=== PATIENT | male | born 1935 | race Caucasian/White ===

== ENCOUNTER 2019-01-28 11:58 | Inpatient (IN) | payer MEDICARE, OTHER ==
--- NOTE | 2019-01-28 12:38 | RADIOLOGY REPORT (SQ) ---
EXAM DESCRIPTION: CHEST SINGLE VIEW COMPLETED DATE/TIME: 01/28/2019 12:25 pm REASON FOR STUDY: sob COMPARISON: None. EXAM PARAMETERS: NUMBER OF VIEWS: One view. TECHNIQUE: Single frontal radiographic view of the chest acquired. RADIATION DOSE: NA LIMITATIONS: None. FINDINGS: LUNGS AND PLEURA: Chronic interstitial changes are present. There is slightly greater opa cification in the right upper lobe and left lower lobe. MEDIASTINUM AND HILAR STRUCTURES: No masses. Contour normal. HEART AND VASCULAR STRUCTURES: Heart normal in size. Normal vasculature. BONES: No acute findings. HARDWARE: Pacemaker. OTHER: No other significant finding. IMPRESSION: Chronic lung changes. Cannot exclude limited superimposed right upper lobe or left lowe r lobe pneumonia. TECHNICAL DOCUMENTATION: JOB ID: [id number] [employer]- All Rights Reserved Reading location - IP/workstation name: [email or web address]
[2019-01-28 12:49] LABS: ABSOLUTE BASOPHILS # (AUTO) 0.1 10^3/uL (0.0-0.2); ABSOLUTE EOSINOPHILS # (AUTO) 0.2 10^3/uL (0.0-0.6); ABSOLUTE LYMPHOCYTES (AUTO) 1.2 10^3/uL (0.5-4.7); ABSOLUTE MONOCYTES (AUTO) 0.5 10^3/uL (0.1-1.4); ABSOLUTE NEUT (AUTO) 5.7 10^3/uL (1.7-8.2); BASOPHILS % (AUTO) 1.3 % (0-2); EOSINOPHILS % (AUTO) 2.8 % (0-6); HEMATOCRIT 35.5 % (37.9-51.0); HEMOGLOBIN 11.8 g/dL (13.5-17.0); MEAN CORPUSCULAR HEMOGLOBIN 27.8 pg (27.0-33.4); MEAN CORPUSCULAR HGB CONC 33.2 g/dL (32.0-36.0); MEAN CORPUSCULAR VOLUME 84 fl (80-97); MONOCYTES % (AUTO) 6.3 % (3-13); PLATELET COUNT 328 10^3/uL (150-450); RED BLOOD COUNT 4.23 10^6/uL (4.35-5.55); RED CELL DISTRIBUTION WIDTH 17.7 % (11.5-14.0); SEGMENTED NEUTROPHILS % (AUTO) 73.6 % (42-78); TOTAL CELLS COUNTED % (AUTO) 100 %; WHITE BLOOD COUNT 7.7 10^3/uL (4.0-10.5)
[2019-01-28] MEDS ORDERED: IPRATROPIUM/ALBUTEROL 0.5-2.5 MG/3 ML AMPUL NEB ONE (13:20)
--- NOTE | 2019-01-28 13:28 | EKG REPORT ---
SEVERITY:- ABNORMAL ECG - ATRIAL-PACED RHYTHM LEFT BUNDLE BRANCH BLOCK : Confirmed by: Raman Rosas MD 28-Jan-2019 13:27:19
[2019-01-28 13:58] LABS: ALBUMIN 3.4 g/dL (3.5-5.0); ALKALINE PHOSPHATASE 93 U/L (38-126); ANION GAP 8 (5-19); ASPARTATE AMINO TRANSFERASE 28 U/L (17-59); BILIRUBIN,DIRECT 0.2 mg/dL (0.0-0.4); BILIRUBIN,TOTAL 0.9 mg/dL (0.2-1.3); BLOOD UREA NITROGEN 19 mg/dL (7-20); CALCIUM 8.8 mg/dL (8.4-10.2); CARBON DIOXIDE 22 mmol/L (22-30); CHLORIDE 111 mmol/L (98-107); CREATINE KINASE 58 U/L (55-170); GLUCOSE 77 mg/dL (75-110); POTASSIUM 4.5 mmol/L (3.6-5.0); TOTAL PROTEIN 6.5 g/dL (6.3-8.2)
[2019-01-28 14:08] LABS: CREATINE KINASE MB 1.48 ng/mL (<4.55); TROPONIN I 0.032 ng/mL
--- NOTE | 2019-01-28 15:41 | ER Document Report ---
Entered by LEONARDO GARNICA SCRIBE 01/28/19 0160 Acting as scribe for:MERLY VALDEZ MD ED Respiratory Problem - General Chief Complaint: Breathing Difficulty Stated Complaint: DIFFICULTY BREATHING Time Seen by Provider: 01/28/19 12:30 Mode of Arrival: Ambulatory Information source: Patient Notes: This 83 year old male patient presents to the emergency department today from a local sleep center where he was having a pulmonary function test performed. Patient reports that when he arrived at the sleep center for this pulmonary study he had a 72% room air oxygen saturation. On arrival here patient was put on 4 L nasal cannula and is saturating 91% which dropped to 89% when he talks. Patient is not on any oxygen at home. Patient states he has had shortness of breath for weeks but states that it has gotten worse recently. Patient states he has also been generally weak for the last month. Pertinent PMHx/PSHx: COPD, MIx2 - additional PMHx/PSHx not pertinent to this visit as recorded. PCP: Doctor Bill Palafox - Related Data Allergies/Adverse Reactions: morphine Allergy (Verified 01/28/19 12:40) Penicillins Allergy (Verified 01/28/19 12:40) Past Medical History - General Information source: Patient - Social History Smoking Status: Former Smoker - quit 10 years ago Cigarette use (# per day): No Frequency of alcohol use: None Drug Abuse: None Occupation: retired Lives with: Spouse/Significant other Family History: Reviewed & Not Pertinent - Past Medical History Cardiac Medical History: Reports: Hx Coronary Artery Disease, Hx Heart Attack - x2, Hx Hypercholesterolemia, Hx Hypertension Neurological Medical History: Reports: 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 Endocrine Medical History: Reports: Hx Hypothyroidism Malignancy Medical History: Reports Other - Bladder cancer Past Surgical History: Reports: Hx Appendectomy, Hx Carotid Endarterectomy - right, Hx Coronary Stent - x2, Hx Pacemaker Review of Systems - Review of Systems Constitutional: No symptoms reported EENT: No symptoms reported Cardiovascular: denies: Chest pain Respiratory: See HPI, Short of breath Gastrointestinal: No symptoms reported Genitourinary: No symptoms reported Male Genitourinary: No symptoms reported Musculoskeletal: No symptoms reported Skin: No symptoms reported Hematologic/Lymphatic: No symptoms reported Neurological/Psychological: No symptoms reported -: Yes All other systems reviewed and negative Physical Exam - Vital signs Vitals: Pulse Ox 90 L 01/28/19 12:00 - Notes Notes: Physical Exam: General: Alert, appears short of breath. HEENT: Normocephalic. Atraumatic. PERRL. Extraocular movements intact. Oropharynx clear. Neck: Supple. Non-tender. Respiratory: Moderate respiratory distress. Saturating at 91% on 4L via nasal cannula and drops to 89% when talking. Rhonchi and wheezing bilaterally. Cardiovascular: Regular rate and rhythm. Abdominal: Normal Inspection. Non-tender. No distension. Normal Bowel Sounds. Back: No gross abnormalities. Extremities: Moves all four extremities. Upper extremities: Normal inspection. Normal ROM. Lower extremities: Normal inspection. No edema. Normal ROM. Neurological: Normal cognition. AAOx4. Normal speech. Psychological: Normal affect. Normal Mood. Skin: Warm. Dry. Normal color. Course - Vital Signs Vital signs: Temp Pulse Resp BP Pulse Ox 97.7 F 22 H 154/95 H 88 L 01/28/19 12:07 01/28/19 15:03 01/28/19 15:03 01/28/19 15:03 - Laboratory Result Diagrams: 01/28/19 12:35 01/28/19 13:21 Laboratory results interpreted by me: 01/28/19 01/28/19 01/28/19 12:35 13:21 13:21 RBC 4.23 L Hgb 11.8 L Hct 35.5 L RDW 17.7 H Chloride 111 H NT-Pro-B Natriuret Pep 8690 H Albumin 3.4 L - Diagnostic Test Radiology reviewed: Image reviewed, Reports reviewed - Chest x-ray shows chronic lung changes, possible superimposed right upper lobe or left lower lobe infiltrates. - EKG Interpretation by [facility] EKG shows normal: [employer] [place], Intervals, QRS Complexes, ST-T Waves Rate: Normal - 60 Rhythm: Other - Atrial paced rhythm [employer]/QRS: LBBB Discharge - Discharge Clinical Impression: Hypoxia, Interstitial pulmonary emphysema, Pulmonary vascular congestion, Dyspnea on minimal exertion, Pacemaker Condition: Stable Disposition: ADMITTED INPATIENT Admitting Provider: Nicanor (Hospitalist) Unit Admitted: Telemetry Scribe Attestation: 01/28/19 13:10 I personally performed the services described in the documentation, reviewed and edited the documentation which was dictated to the scribe in my presence, and it accurately records my words and actions. I personally performed the services described in the documentation, reviewed and edited the documentation which was dictated to the scribe in my presence, and it accurately records my words and actions.
--- NOTE | 2019-01-28 16:52 | RADIOLOGY REPORT (SQ) ---
EXAM DESCRIPTION: CTA CHEST COMPLETED DATE/TIME: 01/28/2019 4:11 pm REASON FOR STUDY: Unexplained hypoxia COMPARISON: None. TECHNIQUE: CT scan of the chest performed using helical scanning technique with dynamic intravenous contrast injection. Images reviewed with lung, soft tissue and bone windows. Reconstructed coronal and sagittal MPR images reviewed. Additional 3 dimensional post-processing performed to develop Maximal Intensity Projection images (AL P). All images stored on PACS. All CT scanners at this facility use dose modulation, iterative reconstruction, and/or weight based d osing when appropriate to reduce radiation dose to as low as reasonably achievable (ALARA). [facility]: Dose Right [facility]: CareDose [facility]: Dose Right [facility]: Teradose 4D [facility]: iwi CONTRAST TYPE AND DOSE: contrast/concentration: Isovue 350.00 mg/ml; Total Contrast Delivered: 62.0 ml; Total Saline Delivered: 80.0 ml Contrast bolus optimized for the pulmonary arteries. Not diagnostic for the aorta. RENAL FUNCTION: BUN 19 creatinine 1.13 RADIATION DOSE: CT Rad equipment meets quality standard of care and radiation dose reduction techniq ues were employed. CTDIvol: 13.2 - 16.1 mGy. DLP: 631 mGy-cm. . LIMITATIONS: None. FINDINGS: LUNGS AND PLEURA: Extensive centrilobular emphysematous changes. Mild ground-glass infilt rates. AORTA AND GREAT VESSELS: No aneurysm. Contrast bolus not optimized for the aorta. HEART: No pericardial effusion. No significant coronary artery calcifications. PULMONARY ARTERIES: No emboli visualized in the main pulmonary arteries or the segmental branches. HILAR AND MEDIASTINAL STRUCTURES: Mediastinal adenopathy. HARDWARE: None in the chest. UPPER ABDOMEN: No significant findings. Limited exam. THYROID AND OTHER SOFT TISSUES: No masses. No adenopathy. BONES: Midthoracic compression changes. No osseous lesions. 3D MIPS: Confirm above findings. OTHER: No other significant finding. IMPRESSION: 1. There is no pulmonary embolus. There is no aortic aneurysm. 2. Extensive pulmonary emphysema. Ground-glass infiltrates suggest mild pulmonary edema. 3. Mediastinal adenopathy. COMMENT: Quality ID # [id number]: Final reports with documentation of one or more dose reduction techniques (e.g., Automated exposure control, adjustment of the mA and/or kV according to patient size, use of iterative reconstruction technique) TECHNICAL DOCUMENTATION: JOB ID: [id number]- All Rights Reserved Reading location - IP/workstation name: [email or web address]
[2019-01-28] MEDS ORDERED: FUROSEMIDE INJ/PF 20 MG/2 ML SDV IV ONE (17:06)
[2019-01-28] MEDS ORDERED: IPRATROPIUM/ALBUTEROL 0.5-2.5 MG/3 ML AMPUL NEB PRN (18:13)
[2019-01-28] MEDS ORDERED: (PENDING PHARMACY ID) (Fluticasone/Salmeterol 2 PUFF) IH PRN (18:18)
[2019-01-28] MEDS ORDERED: POLYETHYLENE GLYCOL 3350 POWDER 17 GM/1 PACKET PO PRN (18:18)
--- NOTE | 2019-01-28 19:12 | PDOC H&P ---
History of Present Illness Admission Date/PCP: 01/28/19 18:40 History of Present Illness: GRACE WARREN JR is a 83 year old male with a history of emphysema and some form of heart failure who is usually not on oxygen at home but apparently is trying to get disability from the MD. He normally sees Dr. Palafox in [place]. The MD wanted him to go see Dr. Sands to get evaluated from a pulmonary standpoint. He said he is been having progressive shortness of breath for the past couple of days. He has not noted any swelling and has been able to lay down flat. He said whenever he got out of the car to walk into the office today he got really short of breath and have his to get him a chair. His pulse oximetry was checked and apparently was in the mid 70s. EMS was called brought him to the hospital. His pulse oximetry was in the mid 80s here. He got up into the low 90s on 2 L nasal cannula. He is not been having any fevers. He has had a little bit of cough. His says she is hurting wheezing. His BNP is elevated and although he does not appear fluid overloaded on examination he got some Lasix anyway. He had profound wheezing and prolonged expiratory phase on examination and is being admitted for acute exacerbation of COPD. Past Medical History Cardiac Medical History: Reports: Coronary Artery Disease, Myocardial Infarction - x2, Hyperlipidema, Hypertension Pulmonary Medical History: Reports: Chronic Obstructive Pulmonary Disease (COPD) Endocrine Medical History: Reports: Hypothyroidism Malignancy Medical History: Reports: Other - Bladder cancer Psychiatric Medical History: Reports: Depression Past Surgical History Past Surgical History: Reports: Appendectomy, Carotid Endarterectomy - right, Coronary Stent - x2, Pacemaker, Vascular Surgery - carotid artery Social History Lives with: Spouse/Significant other Smoking Status: Former Smoker - quit 10 years ago Family History Family History: Reviewed & Not Pertinent Parental Family History Reviewed: Yes Children Family History Reviewed: Yes Sibling(s) Family History Reviewed.: Yes Medication/Allergy Home Medications: Atorvastatin Calcium [Lipitor 20 mg Tablet] 20 mg PO DAILY 01/28/19 Cetirizine HCl [Zyrtec 10 mg Tablet] 1 tab PO DAILY 01/28/19 Donepezil HCl 1 tab PO QHS 01/28/19 Escitalopram Oxalate 20 mg PO DAILY 01/28/19 Fluoxetine HCl [Prozac 20 mg Capsule] 1 cap PO DAILY 01/28/19 Fluticasone/Salmeterol [Advair 250-50 Diskus 14 Dose/Diskus] 2 puff IH QIDP PRN 01/28/19 Levothyroxine Sodium 1 tab PO DAILY 01/28/19 Lisinopril 1 tab PO DAILY 01/28/19 Metoprolol Tartrate [Lopressor 25 mg Tablet] 1 tab PO BID 01/28/19 Mirabegron [Myrbetriq] 25 mg PO DAILY 01/28/19 Multivitamin [Multivitamins] 1 each PO DAILY 01/28/19 Polyethylene Glycol 3350 [Miralax Powder 17 gm/Packet] 1 packet PO PRN PRN 01/28/19 Allergies/Adverse Reactions: morphine Allergy (Verified 01/28/19 12:40) Penicillins Allergy (Verified 01/28/19 12:40) Review of Systems All systems: reviewed and no additional remarkable complaints except as stated - All systems were reviewed and were negative except as noted in the HPI Physical Exam Vital Signs: Temp Pulse Resp BP Pulse Ox 97.7 F 22 H 154/95 H 88 L 01/28/19 12:07 01/28/19 15:03 01/28/19 15:03 01/28/19 15:03 Intake & Output 01/27/19 01/28/19 01/29/19 06:59 06:59 06:59 Weight 85.4 kg General appearance: PRESENT: cooperative, disheveled, mild distress Head exam: PRESENT: atraumatic, normocephalic Eye exam: PRESENT: EOMI, PERRLA. ABSENT: conjunctival injection, nystagmus, scleral icterus Ear exam: PRESENT: normal external ear exam Mouth exam: PRESENT: moist, neck supple Throat exam: ABSENT: post pharyngeal erythema Neck exam: PRESENT: full ROM. ABSENT: carotid bruit, JVD, lymphadenopathy, meningismus, tenderness, thyromegaly Respiratory exam: PRESENT: accessory muscle use, prolonged expiratory phas, rhonchi - Diffuse, wheezes - Audible on the right but far more pronounced on the left side. ABSENT: chest wall tenderness, crackles, tachypnea, unlabored Cardiovascular exam: PRESENT: irregular rhythm Pulses: PRESENT: normal carotid pulses Vascular exam: PRESENT: normal capillary refill GI/Abdominal exam: PRESENT: normal bowel sounds, soft. ABSENT: distended, guarding, rebound, tenderness Extremities exam: ABSENT: clubbing, pedal edema Musculoskeletal exam: PRESENT: normal inspection. ABSENT: deformity Neurological exam: PRESENT: alert, awake, oriented to person, oriented to place, oriented to time, oriented to situation, CN II-XII grossly intact. ABSENT: motor sensory deficit Psychiatric exam: PRESENT: appropriate affect, normal mood Skin exam: PRESENT: dry, warm Results Laboratory Results: 01/28/19 12:35 01/28/19 13:21 01/28/19 01/28/19 01/28/19 12:35 12:35 13:21 WBC 7.7 RBC 4.23 L Hgb 11.8 L Hct 35.5 L MCV 84 MCH 27.8 MCHC 33.2 RDW 17.7 H Plt Count 328 Seg Neutrophils % 73.6 Sodium Cancelled 140.6 Potassium Cancelled 4.5 Chloride Cancelled 111 H Carbon Dioxide Cancelled 22 Anion Gap Cancelled 8 BUN Cancelled 19 Creatinine Cancelled 1.13 Est GFR ( Amer) Cancelled > 60 Est GFR (Non-Af Amer) Cancelled Glucose Cancelled 77 Calcium Cancelled 8.8 Magnesium Cancelled 1.6 Total Bilirubin Cancelled 0.9 AST Cancelled 28 Alkaline Phosphatase Cancelled 93 Total Protein Cancelled 6.5 Albumin Cancelled 3.4 L 01/28/19 01/28/19 01/28/19 12:35 12:35 13:21 Creatine Kinase Cancelled CK-MB (CK-2) Cancelled 1.48 Troponin I Cancelled 0.032 NT-Pro-B Natriuret Pep Cancelled 8690 H 01/28/19 13:21 Creatine Kinase 58 CK-MB (CK-2) Troponin I NT-Pro-B Natriuret Pep Impressions: Chest X-Ray 01/28/19 12:08 IMPRESSION: Chronic lung changes. Cannot exclude limited superimposed right upper lobe or left lower lobe pneumonia. Chest/Abdomen CTA 01/28/19 15:40 IMPRESSION: 1. There is no pulmonary embolus. There is no aortic aneurysm. 2. Extensive pulmonary emphysema. Ground-glass infiltrates suggest mild pulmonary edema. 3. Mediastinal adenopathy. Assessment and Plan - Diagnosis (1) Acute hypoxemic respiratory failure Is this a current diagnosis for this admission?: Yes Plan: Due to his COPD, continue supplemental O2 to maintain SPO2 greater than 88% (2) COPD with acute exacerbation Is this a current diagnosis for this admission?: Yes Plan: I think that this is the reason for his hypoxemia. His BNP was elevated, but this patient does not appear to be fluid overloaded. There was a possibility of some minimal infiltrates on his chest CT, but he does not really present like somebody who is fluid overloaded. He did get 1 dose of Lasix in the ER but I am not going to continue it. We will try to get some records on him to see if he actually does have heart failure. In the meantime, his COPD definitely exacerbated as evidenced by his wheezing, accessory muscle use, and prolonged expiratory phase. We will give him some IV Solu-Medrol, scheduled breathing treatments with PRN treatments in between, and some doxycycline. (3) History of congestive heart failure Is this a current diagnosis for this admission?: Yes Plan: By patient report, no records in this hospital may confirm it. We will attempt to get some outside records from his primary care provider. (4) Hypertension Qualifiers: Hypertension type: essential hypertension Qualified Code(s): I10 - Essential (primary) hypertension Is this a current diagnosis for this admission?: Yes Plan: We will continue his home medications (5) Hypothyroidism Qualifiers: Hypothyroidism type: unspecified Qualified Code(s): E03.9 - Hypothyroidism, unspecified Is this a current diagnosis for this admission?: Yes Plan: We will continue Synthroid - Time Time Spent with patient: 35 or more minutes - Inpatient Certification Based on my medical assessment, after consideration of the patient's comorbidities, presenting symptoms, or acuity I expect that the services needed warrant INPATIENT care.: Yes I certify that my determination is in accordance with my understanding of Medicare's requirements for reasonable and necessary INPATIENT services [42 CFR 412.3e].: Yes Medical Necessity: Significant Comorbidiites Make Outpatient Treatment Too Risky, Need Close Monitoring Due to Risk of Patient Decompensation, Need for Nebulizer Therapy and Monitoring of Response, Risk of Complication if Not Cared For in Hospital
[2019-01-28] MEDS: METHYLPREDNISOLONE INJ 40 MG/1 ML SDV IV SCH (19:44)
[2019-01-28] MEDS: IPRATROPIUM/ALBUTEROL 0.5-2.5 MG/3 ML AMPUL NEB SCH (19:45)
[2019-01-28] MEDS ORDERED: DONEPEZIL HCL PO SCH (22:00)
[2019-01-28 22:07] LABS: APPEARANCE,URINE CLEAR; BILIRUBIN,URINE NEGATIVE (NEGATIVE); COLOR,URINE STRAW; GLUCOSE, URINE NEGATIVE (NEGATIVE); KETONES,URINE NEGATIVE (NEGATIVE); LEUKOCYTE ESTERASE,URINE NEGATIVE (NEGATIVE); NITRITE,URINE NEGATIVE (NEGATIVE); PROTEIN,URINE NEGATIVE (NEGATIVE); URINE SPECIFIC GRAVITY 1.015; UROBILINOGEN,URINE NEGATIVE mg/dL (<2.0)
[2019-01-28] MEDS: METOPROLOL TARTRATE 25 MG TABLET PO SCH (22:59)
[2019-01-28] MEDS: ATORVASTATIN CALCIUM 20 MG TABLET PO SCH (22:59)
[2019-01-28] MEDS: HEPARIN SOD (PORCINE) 5,000 UNIT/ML 1 ML VIAL SUBCUT SCH (22:59)
[2019-01-28] MEDS: DOXYCYCLINE HYCLATE 100 MG TABLET PO SCH (22:59)
[2019-01-28] MEDS: DONEPEZIL HCL 5 MG TABLET PO SCH (22:59)
[2019-01-29] MEDS: IPRATROPIUM/ALBUTEROL 0.5-2.5 MG/3 ML AMPUL NEB SCH ×4 (01:47→20:25)
[2019-01-29] MEDS: METHYLPREDNISOLONE INJ 40 MG/1 ML SDV IV SCH ×3 (02:46→17:22)
[2019-01-29] MEDS: HEPARIN SOD (PORCINE) 5,000 UNIT/ML 1 ML VIAL SUBCUT SCH ×3 (06:11→21:36)
[2019-01-29] MEDS: LEVOTHYROXINE SODIUM 0.05 MG TABLET PO SCH (06:11)
[2019-01-29 06:35] LABS: HEMATOCRIT 33.7 % (37.9-51.0); HEMOGLOBIN 11.3 g/dL (13.5-17.0); MEAN CORPUSCULAR HEMOGLOBIN 27.5 pg (27.0-33.4); MEAN CORPUSCULAR HGB CONC 33.4 g/dL (32.0-36.0); MEAN CORPUSCULAR VOLUME 82 fl (80-97); PLATELET COUNT 259 10^3/uL (150-450); RED BLOOD COUNT 4.09 10^6/uL (4.35-5.55); RED CELL DISTRIBUTION WIDTH 17.3 % (11.5-14.0); WHITE BLOOD COUNT 3.3 10^3/uL (4.0-10.5)
[2019-01-29 07:04] LABS: ANION GAP 11 (5-19); BLOOD UREA NITROGEN 18 mg/dL (7-20); CALCIUM 8.7 mg/dL (8.4-10.2); CARBON DIOXIDE 21 mmol/L (22-30); CHLORIDE 109 mmol/L (98-107); GLUCOSE 123 mg/dL (75-110); POTASSIUM 4.5 mmol/L (3.6-5.0)
--- NOTE | 2019-01-29 07:33 | EKG REPORT ---
SEVERITY:- ABNORMAL ECG - ATRIAL-PACED COMPLEXES LEFT BUNDLE BRANCH BLOCK : Confirmed by: Raman Rosas MD 29-Jan-2019 07:33:00
[2019-01-29] MEDS: DOXYCYCLINE HYCLATE 100 MG TABLET PO SCH ×2 (09:23→21:35)
[2019-01-29] MEDS: MULTIVITAMIN TABLET PO SCH (09:23)
[2019-01-29] MEDS: METOPROLOL TARTRATE 25 MG TABLET PO SCH ×2 (09:24→21:35)
[2019-01-29] MEDS: LISINOPRIL 10 MG TABLET PO SCH (09:24)
[2019-01-29] MEDS: FLUTICASONE/VILANTEROL 200-25 MCG/DOSE IH SCH (09:24)
[2019-01-29] MEDS: ESCITALOPRAM OXALATE 10 MG TABLET PO SCH (09:24)
[2019-01-29] MEDS ORDERED: (PENDING PHARMACY ID) (Escitalopram Oxalate [Escitalopram Oxalate] 20 MG) PO SCH (10:00)
[2019-01-29] MEDS ORDERED: (PENDING PHARMACY ID) (Lisinopril [Lisinopril] 1 TAB) PO SCH (10:00)
[2019-01-29] MEDS ORDERED: (PENDING PHARMACY ID) (Mirabegron [Myrbetriq] 25 MG) PO SCH (10:00)
[2019-01-29] MEDS ORDERED: FLUOXETINE HCL 20 MG CAPSULE PO SCH (10:00)
--- NOTE | 2019-01-29 15:49 | PDOC PROGRESS REPORT ---
Subjective Progress Note for:: 01/29/19 Subjective:: No adverse events overnight. He is on 5 L per nasal cannula now all. He says his breathing feels a lot better. He has not been coughing anything up. He is been able to lay down flat. No fevers. No shortness of breath at rest. He is not try to get up and walk around yet. Reason For Visit: ACUTE HYPOXIC RESPIRATORY FAILURE,AECOPD Physical Exam Vital Signs: Temp Pulse Resp BP Pulse Ox 97.5 F 60 18 110/79 92 01/29/19 11:34 01/29/19 14:00 01/29/19 13:56 01/29/19 11:34 01/29/19 13:56 Intake & Output 01/28/19 01/29/19 01/30/19 06:59 06:59 06:59 Intake Total 1050 1000 Output Total 1175 300 Balance -125 700 Weight 80.6 kg General appearance: PRESENT: cooperative, disheveled, mild distress Respiratory exam: PRESENT: No accessory muscle use, diminished breath sounds, sl ightly prolonged expiratory phase, unlabored ABSENT: chest wall tenderness, crackles, tachypnea, rhonchi, wheezes Cardiovascular exam: PRESENT: irregular rhythm Pulses: PRESENT: normal carotid pulses Vascular exam: PRESENT: normal capillary refill GI/Abdominal exam: PRESENT: normal bowel sounds, soft. ABSENT: distended, guarding, rebound, tenderness Extremities exam: ABSENT: clubbing, pedal edema Musculoskeletal exam: PRESENT: normal inspection. ABSENT: deformity Neurological exam: PRESENT: alert, awake, oriented to person, oriented to place, oriented to time, oriented to situation Psychiatric exam: PRESENT: appropriate affect, normal mood Skin exam: PRESENT: dry, warm Results Laboratory Results: 01/29/19 06:00 01/29/19 06:00 01/28/19 01/29/19 01/29/19 21:25 06:00 06:00 WBC 3.3 L RBC 4.09 L Hgb 11.3 L Hct 33.7 L MCV 82 MCH 27.5 MCHC 33.4 RDW 17.3 H Plt Count 259 Sodium 141.0 Potassium 4.5 Chloride 109 H Carbon Dioxide 21 L Anion Gap 11 BUN 18 Creatinine 1.17 Est GFR ( Amer) > 60 Glucose 123 H Calcium 8.7 Urine Color STRAW Urine Appearance CLEAR Urine pH 5.0 Ur Specific [place] 1.015 Urine Protein NEGATIVE Urine Glucose (UA) NEGATIVE Urine Ketones NEGATIVE Urine Blood NEGATIVE Urine Nitrite NEGATIVE Ur Leukocyte Esterase NEGATIVE Urine WBC (Auto) 1 Urine RBC (Auto) 0 01/28/19 01/28/19 01/28/19 12:35 12:35 13:21 Creatine Kinase Cancelled CK-MB (CK-2) Cancelled 1.48 Troponin I Cancelled 0.032 NT-Pro-B Natriuret Pep Cancelled 8690 H 01/28/19 13:21 Creatine Kinase 58 CK-MB (CK-2) Troponin I NT-Pro-B Natriuret Pep Impressions: Chest X-Ray 01/28/19 12:08 IMPRESSION: Chronic lung changes. Cannot exclude limited superimposed right upper lobe or left lower lobe pneumonia. Chest/Abdomen CTA 01/28/19 15:40 IMPRESSION: 1. There is no pulmonary embolus. There is no aortic aneurysm. 2. Extensive pulmonary emphysema. Ground-glass infiltrates suggest mild pulmonary edema. 3. Mediastinal adenopathy. Assessment and Plan - Diagnosis (1) Acute hypoxemic respiratory failure Is this a current diagnosis for this admission?: Yes Plan: Continue supplemental O2 as needed to maintain SPO2 greater than 88%. His emphysema is severe enough believe at baseline that he may need oxygen whenever he goes home from the hospital. (2) COPD with acute exacerbation Is this a current diagnosis for this admission?: Yes Plan: Improved on his current therapy. We will continue with the current treatment. (3) History of congestive heart failure Is this a current diagnosis for this admission?: Yes Plan: By patient report, no records in this hospital may confirm it. We will attempt to get some outside records from his primary care provider. (4) Hypertension Qualifiers: Hypertension type: essential hypertension Qualified Code(s): I10 - Essential (primary) hypertension Is this a current diagnosis for this admission?: Yes Plan: We will continue his home medications (5) Hypothyroidism Qualifiers: Hypothyroidism type: unspecified Qualified Code(s): E03.9 - Hypothyroidism, unspecified Is this a current diagnosis for this admission?: Yes Plan: We will continue Synthroid - Time Time Spent with patient: 15-24 minutes
[2019-01-29] MEDS: ATORVASTATIN CALCIUM 20 MG TABLET PO SCH (21:35)
[2019-01-29] MEDS: DONEPEZIL HCL 5 MG TABLET PO SCH (21:35)
[2019-01-30] MEDS: METHYLPREDNISOLONE INJ 40 MG/1 ML SDV IV SCH ×3 (01:55→18:03)
[2019-01-30] MEDS: IPRATROPIUM/ALBUTEROL 0.5-2.5 MG/3 ML AMPUL NEB SCH ×4 (02:14→20:17)
[2019-01-30] MEDS: HEPARIN SOD (PORCINE) 5,000 UNIT/ML 1 ML VIAL SUBCUT SCH ×3 (05:35→21:23)
[2019-01-30] MEDS: LEVOTHYROXINE SODIUM 0.05 MG TABLET PO SCH (05:35)
[2019-01-30 05:42] LABS: HEMATOCRIT 32.9 % (37.9-51.0); MEAN CORPUSCULAR HEMOGLOBIN 27.5 pg (27.0-33.4); MEAN CORPUSCULAR HGB CONC 33.4 g/dL (32.0-36.0); MEAN CORPUSCULAR VOLUME 82 fl (80-97); PLATELET COUNT 253 10^3/uL (150-450); RED BLOOD COUNT 3.99 10^6/uL (4.35-5.55); RED CELL DISTRIBUTION WIDTH 17.1 % (11.5-14.0)
[2019-01-30 05:52] LABS: WHITE BLOOD COUNT 10.6 10^3/uL (4.0-10.5)
[2019-01-30] MEDS: DOXYCYCLINE HYCLATE 100 MG TABLET PO SCH ×2 (10:46→21:23)
[2019-01-30] MEDS: MULTIVITAMIN TABLET PO SCH (10:46)
[2019-01-30] MEDS: ESCITALOPRAM OXALATE 10 MG TABLET PO SCH (10:46)
[2019-01-30] MEDS: FLUTICASONE/VILANTEROL 200-25 MCG/DOSE IH SCH (10:50)
[2019-01-30] MEDS: LISINOPRIL 10 MG TABLET PO SCH (10:50)
[2019-01-30] MEDS: METOPROLOL TARTRATE 25 MG TABLET PO SCH ×2 (10:50→21:23)
[2019-01-30] MEDS ORDERED: METOPROLOL TARTRATE PF/INJ 5 MG/5 ML SDV IV ONE (17:56)
--- NOTE | 2019-01-30 18:57 | PDOC PROGRESS REPORT ---
Subjective Progress Note for:: 01/30/19 Subjective:: No adverse events overnight. He is feeling pretty good today. Still on oxygen, and will probably needed to go home with. He had one episode this evening where his heart rate went into the 130s 140s, probably because he did not get his metoprolol this morning because his blood pressure was low but low. Blood pressures elevated now, but in acceptable range, with a systolic in the 130s. He got some IV Lopressor and his heart rate came down to around 110. Reason For Visit: ACUTE HYPOXIC RESPIRATORY FAILURE,AECOPD Physical Exam Vital Signs: Temp Pulse Resp BP Pulse Ox 98.1 F 69 18 94/48 L 92 01/30/19 07:22 01/30/19 14:00 01/30/19 13:53 01/30/19 07:22 01/30/19 13:53 Intake & Output 01/29/19 01/30/19 01/31/19 06:59 06:59 06:59 Intake Total 1050 1118 840 Output Total 1175 600 300 Balance -125 518 540 Weight 80.6 kg 81.9 kg General appearance: PRESENT: cooperative, disheveled, mild distress Respiratory exam: PRESENT: No accessory muscle use, diminished breath sounds, slightly prolonged expiratory phase, unlabored ABSENT: chest wall tenderness, crackles, tachypnea, rhonchi, wheezes Cardiovascular exam: PRESENT: irregular rhythm Pulses: PRESENT: normal carotid pulses Vascular exam: PRESENT: normal capillary refill GI/Abdominal exam: PRESENT: normal bowel sounds, soft. ABSENT: distended, guarding, rebound, tenderness Extremities exam: ABSENT: clubbing, pedal edema Musculoskeletal exam: PRESENT: normal inspection. ABSENT: deformity Neurological exam: PRESENT: alert, awake, oriented to person, oriented to place, oriented to time, oriented to situation Psychiatric exam: PRESENT: appropriate affect, normal mood Skin exam: PRESENT: dry, warm Results Laboratory Results: 01/30/19 05:14 01/29/19 06:00 01/30/19 05:14 WBC 10.6 H D RBC 3.99 L Hgb 11.0 L Hct 32.9 L MCV 82 MCH 27.5 MCHC 33.4 RDW 17.1 H Plt Count 253 01/28/19 01/28/19 01/28/19 12:35 12:35 13:21 Creatine Kinase Cancelled CK-MB (CK-2) Cancelled 1.48 Troponin I Cancelled 0.032 NT-Pro-B Natriuret Pep Cancelled 8690 H 01/28/19 13:21 Creatine Kinase 58 CK-MB (CK-2) Troponin I NT-Pro-B Natriuret Pep Impressions: Chest X-Ray 01/28/19 12:08 IMPRESSION: Chronic lung changes. Cannot exclude limited superimposed right upper lobe or left lower lobe pneumonia. Chest/Abdomen CTA 01/28/19 15:40 IMPRESSION: 1. There is no pulmonary embolus. There is no aortic aneurysm. 2. Extensive pulmonary emphysema. Ground-glass infiltrates suggest mild pulmonary edema. 3. Mediastinal adenopathy. Assessment and Plan - Diagnosis (1) Acute hypoxemic respiratory failure Is this a current diagnosis for this admission?: Yes Plan: Continue supplemental O2 as needed to maintain SPO2 greater than 88%. His emphysema is severe enough believe at baseline that he may need oxygen whenever he goes home from the hospital. (2) COPD with acute exacerbation Is this a current diagnosis for this admission?: Yes Plan: Improved on his current therapy. We will continue with the current treatment. (3) History of congestive heart failure Is this a current diagnosis for this admission?: Yes Plan: By patient report, no records in this hospital may confirm it. We will attempt to get some outside records from his primary care provider. (4) Hypertension Qualifiers: Hypertension type: essential hypertension Qualified Code(s): I10 - Essential (primary) hypertension Is this a current diagnosis for this admission?: Yes Plan: We will continue his home medications (5) Hypothyroidism Qualifiers: Hypothyroidism type: unspecified Qualified Code(s): E03.9 - Hypothyroidism, unspecified Is this a current diagnosis for this admission?: Yes Plan: We will continue Synthroid (6) Atrial fibrillation Qualifiers: Atrial fibrillation type: permanent Qualified Code(s): I48.21 - Permanent atrial fibrillation Is this a current diagnosis for this admission?: Yes Plan: He has a pacemaker and I think from where he did not get his metoprolol this morning it started going faster and his pacemaker could not capture it. We slowed him down some and now it seems like his pacemaker is capturing it. We will make sure that he continues on his metoprolol. - Time Time Spent with patient: 25-34 minutes
--- NOTE | 2019-01-30 20:24 | EKG REPORT ---
SEVERITY:- ABNORMAL ECG - ATRIAL FIBRILLATION [id number] WITH RVR. LEFT BUNDLE BRANCH BLOCK : Confirmed by: Raman Rosas MD 30-Jan-2019 20:24:15
[2019-01-30] MEDS: ATORVASTATIN CALCIUM 20 MG TABLET PO SCH (21:23)
[2019-01-30] MEDS: DONEPEZIL HCL 5 MG TABLET PO SCH (21:23)
[2019-01-31] MEDS: METHYLPREDNISOLONE INJ 40 MG/1 ML SDV IV SCH ×2 (01:10→09:54)
[2019-01-31] MEDS: IPRATROPIUM/ALBUTEROL 0.5-2.5 MG/3 ML AMPUL NEB SCH ×3 (02:17→14:48)
[2019-01-31] MEDS: HEPARIN SOD (PORCINE) 5,000 UNIT/ML 1 ML VIAL SUBCUT SCH ×2 (05:52→14:21)
[2019-01-31] MEDS: LEVOTHYROXINE SODIUM 0.05 MG TABLET PO SCH (05:52)
[2019-01-31 06:01] LABS: HEMATOCRIT 32.4 % (37.9-51.0); HEMOGLOBIN 10.6 g/dL (13.5-17.0); MEAN CORPUSCULAR HEMOGLOBIN 27.2 pg (27.0-33.4); MEAN CORPUSCULAR HGB CONC 32.8 g/dL (32.0-36.0); MEAN CORPUSCULAR VOLUME 83 fl (80-97); PLATELET COUNT 242 10^3/uL (150-450); RED BLOOD COUNT 3.91 10^6/uL (4.35-5.55); RED CELL DISTRIBUTION WIDTH 17.5 % (11.5-14.0); WHITE BLOOD COUNT 11.3 10^3/uL (4.0-10.5)
[2019-01-31] MEDS: ESCITALOPRAM OXALATE 10 MG TABLET PO SCH (09:54)
[2019-01-31] MEDS: DOXYCYCLINE HYCLATE 100 MG TABLET PO SCH (09:54)
[2019-01-31] MEDS: MULTIVITAMIN TABLET PO SCH (09:54)
[2019-01-31] MEDS: METOPROLOL TARTRATE 25 MG TABLET PO SCH (09:54)
[2019-01-31] MEDS: LISINOPRIL 10 MG TABLET PO SCH (09:54)
[2019-01-31] MEDS: FLUTICASONE/VILANTEROL 200-25 MCG/DOSE IH SCH (09:57)
--- NOTE | 2019-01-31 15:20 | PDOC DISCHARGE SUMMARY ---
Impression - Admit/DC Date/PCP Admission Date/Primary Care Provider: 01/28/19 18:[address] Fanny Palafox in [facility] Discharge Date: 01/31/19 - Discharge Diagnosis (1) Acute hypoxemic respiratory failure Is this a current diagnosis for this admission?: Yes (2) COPD with acute exacerbation Is this a current diagnosis for this admission?: Yes (3) History of congestive heart failure Is this a current diagnosis for this admission?: Yes (4) Hypertension Is this a current diagnosis for this admission?: Yes (5) Hypothyroidism Is this a current diagnosis for this admission?: Yes (6) Atrial fibrillation Is this a current diagnosis for this admission?: Yes - Additional Information Resuscitation Status: Do Not Resuscitate Discharge Diet: Cardiac Discharge Activity: Balance Activity w/Rest, Supervised Activity Referrals: FANNY PALAFOX MD [NO LOCAL MD] - 02/05/19 11:15 am (The patient will see Xiomara Sorensen NP) MELISSA PAL MD [ACTIVE STAFF] - 02/01/19 10:45 am Prescriptions: Prednisone [Deltasone 20 mg Tablet] 40 mg PO DAILY #10 tablet Doxycycline Hyclate [Vibramycin 100 mg Tablet] 100 mg PO Q12 #6 tablet Home Medications: Atorvastatin Calcium [Lipitor 20 mg Tablet] 20 mg PO QHS 01/28/19 Cetirizine HCl [Zyrtec 10 mg Tablet] 10 mg PO DAILYP PRN 01/28/19 Donepezil HCl 10 mg PO QHS 01/28/19 Escitalopram Oxalate 20 mg PO DAILY 01/28/19 Fluticasone/Salmeterol [Advair 250-50 Diskus 14 Dose/Diskus] 2 puff IH BID 01/28/19 Levothyroxine Sodium 50 mcg PO Q6AM 01/28/19 Lisinopril 20 mg PO DAILY 01/28/19 Metoprolol Tartrate [Lopressor 25 mg Tablet] 25 mg PO Q12 01/28/19 Mirabegron [Myrbetriq] 25 mg PO DAILY 01/28/19 Multivitamin [Multivitamins] 1 each PO DAILY 01/28/19 Albuterol Sulfate [Ventolin Hfa 8 gm Mdi (1 Mdi/ER Disp)] 2 puff IH QIDP PRN 01/29/19 Guaifenesin/Pseudoephedrne HCl [Mucinex D ER 600-60 mg Tablet] 1 each PO Q12HP PRN 01/29/19 Lidocaine [Lidoderm 5% (700 mg) Transdermal Patch] 1 patch TP DAILYP PRN 01/29/19 Polyethylene Glycol 3350 [Miralax Powder 17 gm/Packet] 1 packet PO DAILYP PRN 01/29/19 Doxycycline Hyclate [Vibramycin 100 mg Tablet] 100 mg PO Q12 #6 tablet 01/31/19 Prednisone [Deltasone 20 mg Tablet] 40 mg PO DAILY #10 tablet 01/31/19 History of Present Illiness History of Present Illness: GRACE WARREN JR is a 83 year old male with a history of emphysema and some form of heart failure who is usually not on oxygen at home but apparently is trying to get disability from the [place]. He normally sees Dr. Palafox in [place]. The [facility] wanted him to go see Dr. Sands to get evaluated from a pulmonary standpoint. He said he is been having progressive shortness of breath for the past couple of days. He has not noted any swelling and has been able to lay down flat. He said whenever he got out of the car to walk into the office today he got really short of breath and have his to get him a chair. His pulse oximetry was checked and apparently was in the mid 70s. EMS was called brought him to the hospital. His pulse oximetry was in the mid 80s here. He got up into the low 90s on 2 L nasal cannula. He is not been having any fevers. He has had a little bit of cough. His says she is hurting wheezing. His BNP is elevated and although he does not appear fluid overloaded on examination he got some Lasix anyway. He had profound wheezing and prolonged expiratory phase on examination and is being admitted for acute exacerbation of COPD. Hospital Course Hospital Course: He responded fairly quickly to IV steroids, bronchodilators, doxycycline, and supplemental oxygen. He was evaluated by physical therapy and they recommended home health PT but he said that home health is "a waste of time" and so he refused. He said he already has 2 walkers at home but prefers to use a four- point cane, our physical therapy team here recommended that he use a 2 wheeled walker. He will complete a short burst of prednisone at home along with a few more days of doxycycline. After his bronchospasm had resolved, we checked his SPO2 on room air, and it was 80%. At rest on 3 L, he was about 88%. On 4 L at rest he was 90 to 92%. When ambulating on 5 L he was 90 to 92%. We made arrangements for him to have oxygen at home with portables. He has follow-up in 5 days with his primary care provider. His labs and examination were reassuring and he was discharged in stable condition. When he came in on his initial presentation, he had been at a local pulmonologists office for what sounds like some pulmonary function testing, but he never made it into the visit because he was having so much shortness of breath walking from the car to the front door. Therefore, this testing will need to be rescheduled. I believe he was at Dr. Sands's office. He said that this appointment had initially been arranged for him through the [place] but I have not been able to confirm that this is the case. Physical Exam Vital Signs: Temp Pulse Resp BP Pulse Ox 97.6 F 63 16 138/50 H 92 01/31/19 11:18 01/31/19 14:48 01/31/19 14:48 01/31/19 11:18 01/31/19 14:48 Intake & Output 01/30/19 01/31/19 02/01/19 06:59 06:59 06:59 Intake Total 1118 940 Output Total 600 925 Balance 518 15 Weight 81.9 kg 82.2 kg General appearance: PRESENT: cooperative, disheveled, no apparent distress Respiratory exam: PRESENT: No accessory muscle use, diminished breath sounds, slightly prolonged expiratory phase, unlabored ABSENT: chest wall tenderness, crackles, tachypnea, rhonchi, wheezes Cardiovascular exam: PRESENT: irregular rhythm Pulses: PRESENT: normal carotid pulses Vascular exam: PRESENT: normal capillary refill GI/Abdominal exam: PRESENT: normal bowel sounds, soft. ABSENT: distended, guarding, rebound, tenderness Extremities exam: ABSENT: clubbing, pedal edema Musculoskeletal exam: PRESENT: normal inspection. ABSENT: deformity Neurological exam: PRESENT: alert, awake, oriented to person, oriented to place Psychiatric exam: PRESENT: appropriate affect, normal mood Skin exam: PRESENT: dry, warm Results Laboratory Results: WBC 11.3 10^3/uL (4.0-10.5) H 01/31/19 05:08 RBC 3.91 10^6/uL (4.35-5.55) L 01/31/19 05:08 Hgb 10.6 g/dL (13.5-17.0) L 01/31/19 05:08 Hct 32.4 % (37.9-51.0) L 01/31/19 05:08 MCV 83 fl (80-97) 01/31/19 05:08 MCH 27.2 pg (27.0-33.4) 01/31/19 05:08 MCHC 32.8 g/dL (32.0-36.0) 01/31/19 05:08 RDW 17.5 % (11.5-14.0) H 01/31/19 05:08 Plt Count 242 10^3/uL (150-450) 01/31/19 05:08 Lymph % (Auto) 16.0 % (13-45) 01/28/19 12:35 [place] % (Auto) 6.3 % (3-13) 01/28/19 12:35 Eos % (Auto) 2.8 % (0-6) 01/28/19 12:35 Baso % (Auto) 1.3 % (0-2) 01/28/19 12:35 Absolute Neuts (auto) 5.7 10^3/uL (1.7-8.2) 01/28/19 12:35 Absolute Lymphs (auto) 1.2 10^3/uL (0.5-4.7) 01/28/19 12:35 Absolute Monos (auto) 0.5 10^3/uL (0.1-1.4) 01/28/19 12:35 Absolute Eos (auto) 0.2 10^3/uL (0.0-0.6) 01/28/19 12:35 Absolute Basos (auto) 0.1 10^3/uL (0.0-0.2) 01/28/19 12:35 Seg Neutrophils % 73.6 % (42-78) 01/28/19 12:35 Sodium 141.0 mmol/L (137-145) 01/29/19 06:00 Potassium 4.5 mmol/L (3.6-5.0) 01/29/19 06:00 Chloride 109 mmol/L (98-107) H 01/29/19 06:00 Carbon Dioxide 21 mmol/L (22-30) L 01/29/19 06:00 Anion Gap 11 (5-19) 01/29/19 06:00 BUN 18 mg/dL (7-20) 01/29/19 06:00 Creatinine 1.17 mg/dL (0.52-1.25) 01/29/19 06:00 Est GFR ( Amer) > 60 (>60) 01/29/19 06:00 Est GFR (Non-Af Amer) Cancelled 01/28/19 12:35 Est GFR (MDRD) Non-Af > 60 (>60) 01/29/19 06:00 Glucose 123 mg/dL (75-110) H 01/29/19 06:00 Calcium 8.7 mg/dL (8.4-10.2) 01/29/19 06:00 Magnesium 1.6 mg/dL (1.6-2.3) 01/28/19 13:21 Total Bilirubin 0.9 mg/dL (0.2-1.3) 01/28/19 13:21 Direct Bilirubin 0.2 mg/dL (0.0-0.4) 01/28/19 13:21 Neonat Total Bilirubin Not Reportable 01/28/19 13:21 Neonat Direct Bilirubin Not Reportable 01/28/19 13:21 Neonat Indirect Bili Not Reportable 01/28/19 13:21 AST 28 U/L (17-59) 01/28/19 13:21 ALT 13 U/L (<50) 01/28/19 13:21 Alkaline Phosphatase 93 U/L (38-126) 01/28/19 13:21 Creatine Kinase 58 U/L (55-170) 01/28/19 13:21 CK-MB (CK-2) 1.48 ng/mL (<4.55) 01/28/19 13:21 Troponin I 0.032 ng/mL 01/28/19 13:21 NT-Pro-B Natriuret Pep 8690 pg/mL (<450) H 01/28/19 13:21 Total Protein 6.5 g/dL (6.3-8.2) 01/28/19 13:21 Albumin 3.4 g/dL (3.5-5.0) L 01/28/19 13:21 EGFR Cancelled 01/28/19 12:35 Urine Color STRAW 01/28/19 21:25 Urine Appearance CLEAR 01/28/19 21:25 Urine pH 5.0 (5.0-9.0) 01/28/19 21:25 Ur Specific [place] 1.015 01/28/19 21:25 Urine Protein NEGATIVE mg/dL (NEGATIVE) 01/28/19 21:25 Urine Glucose (UA) NEGATIVE mg/dL (NEGATIVE) 01/28/19 21:25 Urine Ketones NEGATIVE mg/dL (NEGATIVE) 01/28/19 21:25 Urine Blood NEGATIVE (NEGATIVE) 01/28/19 21:25 Urine Nitrite NEGATIVE (NEGATIVE) 01/28/19 21:25 Urine Bilirubin NEGATIVE (NEGATIVE) 01/28/19 21:25 Urine Urobilinogen NEGATIVE mg/dL (<2.0) 01/28/19 21:25 Ur Leukocyte Esterase NEGATIVE (NEGATIVE) 01/28/19 21:25 Urine WBC (Auto) 1 /HPF 01/28/19 21:25 Urine RBC (Auto) 0 /HPF 01/28/19 21:25 Urine Mucus (Auto) RARE /LPF 01/28/19 21:25 Urine Ascorbic Acid NEGATIVE (NEGATIVE) 01/28/19 21:25 01/28/19 01/28/19 12:35 13:21 CK-MB (CK-2) Cancelled 1.48 Troponin I Cancelled 0.032 NT-Pro-B Natriuret Pep Cancelled 8690 H Impressions: Chest X-Ray 01/28/19 12:08 IMPRESSION: Chronic lung changes. Cannot exclude limited superimposed right upper lobe or left lower lobe pneumonia. Chest/Abdomen CTA 01/28/19 15:40 IMPRESSION: 1. There is no pulmonary embolus. There is no aortic aneurysm. 2. Extensive pulmonary emphysema. Ground-glass infiltrates suggest mild pulmonary edema. 3. Mediastinal adenopathy. Plan Time Spent: Greater than 30 Minutes Stroke Is this a Stroke Patient?: No Acute Heart Failure - Is this a Heart Failure Patient?: No
[2019-01-31 15:29] VITALS: BP 144/85
== END 2019-01-31 15:30 | disposition home or self-care (01) | DRG 189 ==
LOC: ER 11:58 → EH 18:40 → 3W 21:52
PROVIDERS: ADMIT Family Medicine; ATTEND Family Medicine
DX: J96.01 Acute respiratory failure with hypoxia (principal); J44.1 Chronic obstructive pulmonary disease with (acute) exacerbation; I48.21 Permanent atrial fibrillation; E03.9 Hypothyroidism, unspecified; I10 Essential (primary) hypertension; Z66 Do not resuscitate; I69.344 Monoplegia of lower limb following cerebral infarction affecting left non-dominant side
CPT/HCPCS: 36415; 71045; 71275; 80048; 80053; 81001; 82550; 82553; 83735; 83880; 84484; 85025; 85027; 93005; 93010; 94640; 96374; 99285; J1644; J1940; J2920; J3490; J7620